=== PATIENT | male | born 1970 | race Hispanic/Latino ===

== ENCOUNTER 2019-04-11 22:54 | Emergency (ER) | payer BC ==
[2019-04-12 00:53] LABS: Basophils % (Auto) 0.3 % (0.0-1.8); Eosinophils % (Auto) 0.4 % (0.0-4.3); Hematocrit 48.7 % (35.5-45.6); Hemoglobin 16.5 gm/dl (11.8-15.2); Lymphocytes # (Auto) 1.1 K/mm3 (1.2-5.4); Mean Corpuscular HGB Conc 34 % (32-34); Mean Corpuscular Volume 88 fl (84-94); Monocytes # (Auto) 0.8 K/mm3 (0.0-0.8); Monocytes % (Auto) 6.1 % (0.0-7.3); Platelet Count 260 K/mm3 (140-440); Red Blood Count 5.56 M/mm3 (3.65-5.03); Red Cell Distribution Width 13.3 % (13.2-15.2)
[2019-04-12] MEDS ORDERED: ASPIRIN 81 MG TAB CHEW PO ONE (00:55)
[2019-04-12] MEDS ORDERED: PANTOPRAZOLE 40 MG INJ IV ONE (00:59)
--- NOTE | 2019-04-12 00:59 | Emergency Department Report ---
ED Chest Pain HPI - General Chief Complaint: Chest Pain Stated Complaint: CHEST PAIN/TODD Time Seen by Provider: 04/12/19 00:54 Source: patient, family Mode of arrival: Ambulatory Limitations: No Limitations - History of Present Illness Initial Comments: Patient is 48 years old male with no significant past medical history except for anxiety. Patient presented to the ER complaining of left-sided chest pain, epigastric pain for the last 5 hours. Patient describes his pain as indigestion feeling. Patient denied any shortness of breath or palpitation. No fever or chills. No nausea or vomiting. MD Complaint: chest pain -: This evening Onset: during rest Pain Location: left chest Pain Radiation: none Severity scale (0 -10): 10 Consistency: intermittent - Related Data Allergies Allergy/AdvReac Type Severity Reaction Status Date / Time bee venom protein (honey bee) Allergy Anaphylaxis Verified 04/12/19 00:26 rye bread Allergy Hives Uncoded 04/12/19 00:26 Heart Score - HEART Score History: Slightly suspicious EKG: Normal Age: 45-65 Risk factors: No known risk factors Troponin: < normal limit HEART Score: 1 - Critical Actions Critical Actions: 0-3 pts:0.9-1.7%risk of adverse cardiac event.Candidate for discharge ED Review of Systems ROS: Stated complaint: CHEST PAIN/TODD Other details as noted in HPI Comment: All other systems reviewed and negative Constitutional: denies: chills, fever Respiratory: denies: cough, shortness of breath, SOB with exertion Cardiovascular: chest pain. denies: palpitations, dyspnea on exertion, orthopnea Gastrointestinal: denies: abdominal pain, nausea, vomiting, diarrhea, constipation, hematemesis, melena, hematochezia Musculoskeletal: denies: back pain Neurological: denies: headache, weakness, numbness, paresthesias, confusion ED Past Medical Hx - Past Medical History Previous Medical History?: Yes Additional medical history: Psorasis - Surgical History Past Surgical History?: Yes Additional Surgical History: Cyst on face - Social History Smoking Status: Former Smoker Substance Use Type: None ED Physical Exam - General Limitations: No Limitations General appearance: alert, in no apparent distress, anxious - Head Head exam: Present: atraumatic, normocephalic, normal inspection - Eye Eye exam: Present: normal appearance - ENT ENT exam: Present: normal exam, normal orophraynx, mucous membranes moist - Neck Neck exam: Present: normal inspection, full ROM. Absent: tenderness, meningismus - Respiratory Respiratory exam: Present: normal lung sounds bilaterally. Absent: respiratory distress, wheezes, rales, rhonchi, chest wall tenderness, accessory muscle use, decreased breath sounds, prolonged expiratory - Cardiovascular Cardiovascular Exam: Present: regular rate, normal rhythm, normal heart sounds - GI/Abdominal GI/Abdominal exam: Present: soft, normal bowel sounds. Absent: distended, tenderness, guarding, rebound, rigid, organomegaly, mass, bruit, pulsatile mass, hernia - Extremities Exam Extremities exam: Present: normal inspection, full ROM, normal capillary refill. Absent: pedal edema, calf tenderness - Back Exam Back exam: Present: normal inspection, full ROM. Absent: CVA tenderness (R), CVA tenderness (L) - Neurological Exam Neurological exam: Present: alert, oriented X3, CN II-XII intact, normal gait, reflexes normal - Psychiatric Psychiatric exam: Present: normal mood - Skin Skin exam: Present: warm, intact, normal color ED Course Vital Signs 04/12/19 04/12/19 04/12/19 00:31 01:00 01:30 Temperature 98.2 F Pulse Rate 87 61 62 Respiratory 18 16 24 Rate Blood Pressure 132/78 135/86 Blood Pressure 133/80 131/85 [Left] O2 Sat by Pulse 100 100 100 Oximetry 04/12/19 04/12/19 03:00 04:00 Temperature Pulse Rate 71 62 Respiratory 12 13 Rate Blood Pressure 118/74 113/72 Blood Pressure [Left] O2 Sat by Pulse 97 96 Oximetry - Reevaluation(s) Reevaluation #1: 04/12/19 02:24 Patient stated that his chest pain is completely resolved after Protonix. ED Medical Decision Making - Lab Data Result diagrams: 04/12/19 00:37 04/12/19 00:37 - EKG Data -: EKG Interpreted by Ut EKG shows normal: sinus rhythm Rate: normal - EKG Data Interpretation: no acute changes - Radiology Data Radiology results: report reviewed - Medical Decision Making Patient is 48 years old male with no significant past medical history except for anxiety. Patient presented to the ER complaining of left-sided chest pain, epigastric pain for the last 5 hours. Patient describes his pain as indigestion feeling. Patient denied any shortness of breath or palpitation. No fever or chills. No nausea or vomiting. EKG is unremarkable. Chest x-ray is negative for acute finding. Labs reviewed and is unremarkable including 2 sets of troponin. Patient received Protonix and stated that his symptoms completely resolved. Patient advised to follow-up with his primary care physician in the next 2-3 days and to return to the ER if symptoms are not improved. Critical care attestation.: If time is entered above; I have spent that time in minutes in the direct care of this critically ill patient, excluding procedure time. ED Disposition Clinical Impression: Chest pain, Gastritis Disposition: DC-01 TO HOME OR SELFCARE Is pt being admited?: No Condition: Stable Instructions: Chest Pain (ED) Referrals: PRIMARY CARE, [Primary Care Provider] - 3-5 Days
[2019-04-12 01:12] LABS: Alanine Aminotransferase 50 units/L (7-56); Albumin 4.7 g/dL (3.9-5); BUN/Creatinine Ratio 13; Blood Urea Nitrogen 15 mg/dL (9-20); Calcium 10.2 mg/dL (8.4-10.2); Hemolysis Index 4
[2019-04-12 01:39] LABS: INR 0.98 (0.87-1.13)
[2019-04-12 01:40] LABS: Partial Thromboplastin Time 26.1 Sec. (24.2-36.6)
--- NOTE | 2019-04-12 01:43 | XRay Report ---
CHEST 1 VIEW INDICATION / CLINICAL INFORMATION: Chest Pain. COMPARISON: None available. FINDINGS: SUPPORT DEVICES: None. HEART / MEDIASTINUM: No significant abnormality. LUNGS / PLEURA: No significant pulmonary or pleural abnormality. No pneumothorax. ADDITIONAL FINDINGS: No significant additional findings. IMPRESSION: 1. No significant change Signer Name: Roni aOkley MD Signed: 04/12/2019 1:39 AM Workstation Name: [id number]
[2019-04-12 04:04] VITALS: BP 113/72
== END 2019-04-12 04:58 | disposition home or self-care (01) ==
LOC: ED 22:54
DX: K29.70 Gastritis, unspecified, without bleeding (principal); R07.89 Other chest pain; Z87.891 Personal history of nicotine dependence
CPT/HCPCS: 36415; 71045; 80053; 83690; 84484; 85025; 85610; 85730; 93005; 93010; 96374; 99284; C9113